=== PATIENT | female | born 1970 | race Caucasian/White ===

== ENCOUNTER 2022-04-19 10:04 | Outpatient (CLI) | payer BC | END 2022-04-19 10:05 | disposition home or self-care (01) | LOC: BICMAMMO 10:04 | PROVIDERS: ATTEND Nurse Practitioner Family | DX: Z12.31 Encounter for screening mammogram for malignant neoplasm of breast (principal); Z80.3 Family history of malignant neoplasm of breast; Z91.89 Other specified personal risk factors, not elsewhere classified; N63.11 Unspecified lump in the right breast, upper outer quadrant | CPT/HCPCS: G0279 ==